=== PATIENT | female | born 1985 | race American Indian/Alaskan Native ===

== ENCOUNTER 2019-03-18 00:13 | Emergency (ER) | payer OTHER, MEDICAID ==
[2019-03-18 00:28] VITALS: BP 116/65
[2019-03-18 00:59] LABS: Basophils # (Auto) 0.1 K/mm3 (0.0-0.1); Basophils % (Auto) 0.6 % (0.0-1.8); Eosinophils # (Auto) 0.2 K/mm3 (0.0-0.4); Hematocrit 36.5 % (30.3-42.9); Hemoglobin 12.4 gm/dl (10.1-14.3); Lymphocytes # (Auto) 2.4 K/mm3 (1.2-5.4); Lymphocytes % (Auto) 24.5 % (13.4-35.0); Mean Corpuscular HGB Conc 34 % (30-34); Mean Corpuscular Volume 83 fl (79-97); Monocytes # (Auto) 0.8 K/mm3 (0.0-0.8); Monocytes % (Auto) 7.8 % (0.0-7.3); Platelet Count 293 K/mm3 (140-440); Red Blood Count 4.38 M/mm3 (3.65-5.03); Red Cell Distribution Width 13.8 % (13.2-15.2)
[2019-03-18 01:18] LABS: Bilirubin,Urine NEG (Negative); Blood,Urine NEG (Negative); Color,Urine Yellow (Yellow); Mucus,Urine 1+ /HPF; Urobilinogen,Urine < 2.0 mg/dL (<2.0)
[2019-03-18 01:21] LABS: Alanine Aminotransferase 8 units/L (7-56); BUN/Creatinine Ratio 13; Blood Urea Nitrogen 8 mg/dL (7-17); Calcium 9.1 mg/dL (8.4-10.2); Hemolysis Index 1
== END 2019-03-18 03:30 | disposition left against medical advice (07) ==
LOC: ED 00:13
DX: O21.8 Other vomiting complicating pregnancy (principal); Z3A.01 Less than 8 weeks gestation of pregnancy; Z53.21 Procedure and treatment not carried out due to patient leaving prior to being seen by health care provider
CPT/HCPCS: 36415; 80053; 81001; 84702; 85025

== ENCOUNTER 2019-03-18 14:01 | Emergency (ER) | payer OTHER, MEDICAID ==
[2019-03-18 14:10] VITALS: BP 132/76
--- NOTE | 2019-03-18 15:01 | Event Note ---
ED Screening Note Date of service: 03/18/19 Time: 14:58 ED Screening Note: This is a 33 y.o. F. that presents to the ER with nausea, vomiting, and diarrhea for 2-3 days. Patient reports being 7 weeks . Followed by [facility]. LMP 01/31/2019 A1 miscarriage This initial assessment/diagnostic orders/clinical plan/treatment(s) is/are subject to change based on patients health status, clinical progression and re- assessment by fellow clinical providers in the ED. Further treatment and workup at subsequent clinical providers discretion. Patient/guardian urged not to elope from the ED as their condition may be serious if not clinically assessed and managed. Initial orders include: Labs
[2019-03-18 15:36] LABS: Bilirubin,Urine NEG (Negative); Blood,Urine NEG (Negative); Color,Urine Yellow (Yellow); Mucus,Urine 1+ /HPF; Protein,Urine <15 mg/dL mg/dL (Negative); Urobilinogen,Urine < 2.0 mg/dL (<2.0)
[2019-03-18 15:42] LABS: HCG Qualitative,Urine Positive (Negative)
[2019-03-18 15:56] LABS: Basophils % (Auto) 0.3 % (0.0-1.8); Eosinophils # (Auto) 0.1 K/mm3 (0.0-0.4); Eosinophils % (Auto) 1.7 % (0.0-4.3); Hematocrit 35.8 % (30.3-42.9); Lymphocytes # (Auto) 2.2 K/mm3 (1.2-5.4); Lymphocytes % (Auto) 24.8 % (13.4-35.0); Mean Corpuscular HGB Conc 34 % (30-34); Mean Corpuscular Volume 84 fl (79-97); Monocytes # (Auto) 0.5 K/mm3 (0.0-0.8); Monocytes % (Auto) 5.3 % (0.0-7.3); Red Blood Count 4.26 M/mm3 (3.65-5.03)
[2019-03-18 16:03] LABS: Alanine Aminotransferase 9 units/L (7-56); BUN/Creatinine Ratio 12; Blood Urea Nitrogen 6 mg/dL (7-17); Calcium 9.3 mg/dL (8.4-10.2); Hemolysis Index 55
[2019-03-18 16:04] LABS: Platelet Count 254 K/mm3 (140-440)
[2019-03-18] MEDS ORDERED: ZOFRAN IV ONE (16:08)
[2019-03-18] MEDS ORDERED: NACL 0.9% 1000 ML 1,000 ML IV ONE (16:08)
--- NOTE | 2019-03-18 16:45 | Emergency Department Report ---
ED N/V/D HPI - General Chief complaint: Nausea/Vomiting/Diarrhea Stated complaint: 7 WKS /VOMIT/DIARRHEA Time Seen by Provider: 03/18/19 14:58 Source: patient Mode of arrival: Ambulatory Limitations: No Limitations - History of Present Illness Initial comments: Janeen is a 33 year old 102 who is 7 weeks . Estimated due date is 11/03/2019. She presents with 3 days of vomiting and diarrhea. She did have fast food recently. 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 She denies abdominal pain. Denies fever. Denies dysuria. 2 healthy children. One miscarriage. With her previous pregnancies, she's had severe morning sickness. MD complaint: nausea, vomiting, diarrhea -: Gradual, days(s) (3) Description of Vomiting: food contents Description of Diarrhea: water Associated Abdominal Pain: No Severity: mild Pain Scale: 0 Improves with: none Worsens with: eating Context: possible food poisoning - Related Data Previous Rx's Medication Instructions Recorded Last Taken Type Ondansetron [Zofran Odt] 4 mg PO Q8HR PRN #10 tab.rapdis 03/18/19 Unknown Rx Promethazine [Phenergan] 25 mg PO Q6HR PRN #10 tab 03/18/19 Unknown Rx Allergies Allergy/AdvReac Type Severity Reaction Status Date / Time No Known Allergies Allergy Unverified 03/18/19 00:28 ED Review of Systems ROS: Stated complaint: 7 WKS /VOMIT/DIARRHEA Other details as noted in HPI Comment: All other systems reviewed and negative Constitutional: denies: fever, malaise Cardiovascular: denies: chest pain ED Past Medical Hx - Past Medical History Previous Medical History?: No - Surgical History Past Surgical History?: No - Social History Smoking Status: Never Smoker - Medications Home Medications: Home Medications Medication Instructions Recorded Confirmed Last Taken Type Ondansetron [Zofran Odt] 4 mg PO Q8HR PRN #10 tab.rapdis 03/18/19 Unknown Rx Promethazine [Phenergan] 25 mg PO Q6HR PRN #10 tab 03/18/19 Unknown Rx ED Physical Exam - General Limitations: No Limitations General appearance: alert, in no apparent distress, other (appears well appears comfortable) - Head Head exam: Present: atraumatic, normocephalic - Eye Eye exam: Present: normal appearance - ENT ENT exam: Present: mucous membranes moist - Neck Neck exam: Present: normal inspection, full ROM - Respiratory Respiratory exam: Present: normal lung sounds bilaterally. Absent: respiratory distress, wheezes, rales, rhonchi - Cardiovascular Cardiovascular Exam: Present: regular rate, normal rhythm, normal heart sounds. Absent: systolic murmur, diastolic murmur, rubs, gallop - GI/Abdominal GI/Abdominal exam: Present: soft, normal bowel sounds. Absent: distended, tenderness, guarding, rebound - Extremities Exam Extremities exam: Present: normal inspection - Back Exam Back exam: Present: normal inspection - Neurological Exam Neurological exam: Present: alert, oriented X3 - Psychiatric Psychiatric exam: Present: normal affect, normal mood - Skin Skin exam: Present: warm, dry, intact, normal color. Absent: rash ED Course Vital Signs 03/18/19 14:04 Temperature 97.9 F Pulse Rate 78 Respiratory 15 Rate Blood Pressure 132/76 [Right] O2 Sat by Pulse 99 Oximetry ED Medical Decision Making - Lab Data Result diagrams: 03/18/19 15:18 03/18/19 15:18 Laboratory Results - last 24 hr 03/18/19 03/18/19 03/18/19 15:08 15:18 15:18 WBC 8.9 RBC 4.26 Hgb 12.0 Hct 35.8 MCV 84 MCH 28 MCHC 34 RDW 14.0 Plt Count 254 Lymph % (Auto) 24.8 [place] % (Auto) 5.3 Eos % (Auto) 1.7 Baso % (Auto) 0.3 Lymph # 2.2 [place] # 0.5 Eos # 0.1 Baso # 0.0 Seg Neutrophils % 67.9 Seg Neutrophils # 6.0 Sodium 135 L Potassium 4.1 Chloride 99.2 Carbon Dioxide 21 L Anion Gap 19 BUN 6 L Creatinine 0.5 L Estimated GFR > 60 BUN/Creatinine Ratio 12 Glucose 95 Calcium 9.3 Total Bilirubin 0.20 ALT 9 Alkaline Phosphatase 52 Total Protein 7.8 Albumin 4.0 Albumin/Globulin Ratio 1.1 Urine Color Yellow Urine Turbidity Cloudy Urine pH 5.0 Ur Specific [place] 1.027 Urine Protein <15 mg/dl Urine Glucose (UA) Neg Urine Ketones Tr Urine Blood Neg Urine Nitrite Neg Urine Bilirubin Neg Urine Urobilinogen < 2.0 Ur Leukocyte Esterase Sm Urine WBC (Auto) 5.0 Urine RBC (Auto) 5.0 U Epithel Cells (Auto) 22.0 H Urine Mucus 1+ Urine HCG, Qual Positive A - Medical Decision Making Janeen presents with mild dehydration reflected by decreased bicarbonate and decreased sodium on BMP. Given IV fluid and IV Zofran. Prescribed promethazine and Zofran. Clinical impression: Dehydration, , food poisoning Critical care attestation.: If time is entered above; I have spent that time in minutes in the direct care of this critically ill patient, excluding procedure time. ED Disposition Clinical Impression: Dehydration during , First trimester , Food poisoning Disposition: DC- TO HOME OR SELFCARE Is pt being admited?: No Does the pt Need Aspirin: No Condition: Stable Instructions: Hyperemesis Gravidarum (ED) Prescriptions: Promethazine [Phenergan] 25 mg PO Q6HR PRN #10 tab PRN Reason: Nausea Ondansetron [Zofran Odt] 4 mg PO Q8HR PRN #10 tab.rapdis PRN Reason: Nausea Referrals: JEFF LINDSAY MD [Staff Physician] - 3-5 Days Forms: Work/School Release Form(ED)
== END 2019-03-18 17:00 | disposition home or self-care (01) ==
LOC: ED 14:01
DX: O9A.211 Injury, poisoning and certain other consequences of external causes complicating pregnancy, first trimester (principal); O99.281 Endocrine, nutritional and metabolic diseases complicating pregnancy, first trimester; A05.9 Bacterial foodborne intoxication, unspecified; E86.0 Dehydration; Z3A.01 Less than 8 weeks gestation of pregnancy
CPT/HCPCS: 36415; 80053; 81001; 81025; 85025; 96361; 96374; 99283; J2405; J7030

== ENCOUNTER 2019-03-31 14:36 | Emergency (ER) | payer OTHER, MEDICAID ==
[2019-03-31 16:24] LABS: Basophils % (Auto) 0.5 % (0.0-1.8); Eosinophils # (Auto) 0.2 K/mm3 (0.0-0.4); Eosinophils % (Auto) 2.1 % (0.0-4.3); Hematocrit 37.8 % (30.3-42.9); Hemoglobin 12.5 gm/dl (10.1-14.3); Lymphocytes # (Auto) 2.2 K/mm3 (1.2-5.4); Lymphocytes % (Auto) 26.1 % (13.4-35.0); Mean Corpuscular HGB Conc 33 % (30-34); Mean Corpuscular Volume 84 fl (79-97); Monocytes # (Auto) 0.6 K/mm3 (0.0-0.8); Monocytes % (Auto) 7.2 % (0.0-7.3); Platelet Count 272 K/mm3 (140-440); Red Blood Count 4.52 M/mm3 (3.65-5.03)
[2019-03-31 16:33] LABS: Alanine Aminotransferase 9 units/L (7-56); BUN/Creatinine Ratio 12; Blood Urea Nitrogen 7 mg/dL (7-17); Calcium 9.4 mg/dL (8.4-10.2); Hemolysis Index 17
[2019-03-31 17:03] LABS: Bilirubin,Urine Negative (Negative); Blood,Urine Negative (Negative); Color,Urine Yellow (Yellow); Urobilinogen,Urine < 2.0 mg/dL (<2.0)
[2019-03-31 18:38] LABS: Mucus,Urine 2+ /HPF
[2019-03-31] MEDS ORDERED: ZOFRAN ODT PO ONE (19:48)
[2019-03-31] MEDS ORDERED: IMODIUM PO ONE (19:48)
--- NOTE | 2019-03-31 19:52 | Emergency Department Report ---
ED N/V/D HPI - General Chief complaint: Nausea/Vomiting/Diarrhea Stated complaint: VOMIT/DIARRHEA/BACK PAIN Time Seen by Provider: 03/31/19 18:29 Source: patient Mode of arrival: Ambulatory Limitations: No Limitations - History of Present Illness Initial comments: 33-year-old female presents to ED with nausea, vomiting, diarrhea 2 days. Patient states she is currently 10 weeks . She reports lower abdominal pain radiating to the back. Patient denies any vaginal bleeding or discharge. She denies fever. OB: [facility] MD complaint: nausea, vomiting, diarrhea, abdominal pain -: days(s) (2) Associated Abdominal Pain: Yes Location: LLQ, RLQ Radiation: other (back) Severity: moderate Quality: cramping Consistency: intermittent Improves with: none Worsens with: eating Associated Symptoms: nausea/vomiting. denies: fever/chills - Related Data Previous Rx's Medication Instructions Recorded Last Taken Type Ondansetron [Zofran Odt] 4 mg PO Q8HR PRN #10 tab.rapdis 03/18/19 Unknown Rx Promethazine [Phenergan] 25 mg PO Q6HR PRN #10 tab 03/18/19 Unknown Rx Metoclopramide HCl [Reglan TAB] 5 mg PO TID PRN #20 tablet 03/31/19 Unknown Rx Allergies Allergy/AdvReac Type Severity Reaction Status Date / Time No Known Allergies Allergy Unverified 03/18/19 00:28 ED Review of Systems ROS: Stated complaint: VOMIT/DIARRHEA/BACK PAIN Other details as noted in HPI Comment: All other systems reviewed and negative Constitutional: denies: chills, fever Gastrointestinal: abdominal pain, nausea, vomiting, diarrhea Genitourinary: denies: dysuria, frequency, discharge, abnormal menses ED Past Medical Hx - Past Medical History Previous Medical History?: No - Surgical History Past Surgical History?: No - Social History Smoking Status: Never Smoker Substance Use Type: None - Medications Home Medications: Home Medications Medication Instructions Recorded Confirmed Last Taken Type Ondansetron [Zofran Odt] 4 mg PO Q8HR PRN #10 tab.rapdis 03/18/19 Unknown Rx Promethazine [Phenergan] 25 mg PO Q6HR PRN #10 tab 03/18/19 Unknown Rx Metoclopramide HCl [Reglan TAB] 5 mg PO TID PRN #20 tablet 03/31/19 Unknown Rx ED Physical Exam - General Limitations: No Limitations General appearance: alert, in no apparent distress - Head Head exam: Present: atraumatic, normocephalic - Eye Eye exam: Present: normal appearance - ENT ENT exam: Present: mucous membranes moist - Neck Neck exam: Present: normal inspection - Respiratory Respiratory exam: Present: normal lung sounds bilaterally. Absent: respiratory distress - Cardiovascular Cardiovascular Exam: Present: regular rate, normal rhythm - GI/Abdominal GI/Abdominal exam: Present: soft, tenderness (mild diffuse). Absent: distended - Extremities Exam Extremities exam: Present: normal inspection - Neurological Exam Neurological exam: Present: alert, oriented X3 - Psychiatric Psychiatric exam: Present: normal affect, normal mood - Skin Skin exam: Present: warm, dry, intact, normal color ED Course Vital Signs 03/31/19 03/31/19 15:12 21:07 Temperature 98.3 F Pulse Rate 82 87 Respiratory 18 17 Rate Blood Pressure 107/64 Blood Pressure 110/61 [Left] O2 Sat by Pulse 100 Oximetry ED Medical Decision Making - Lab Data Result diagrams: 03/31/19 15:36 03/31/19 15:36 - Medical Decision Making Labs unremarkable. US normal. Pt tolerating PO. Outpt f/u advised. Return precautions given. - Differential Diagnosis gastroenteritis, miscarriage, UTI Critical care attestation.: If time is entered above; I have spent that time in minutes in the direct care of this critically ill patient, excluding procedure time. ED Disposition Clinical Impression: Gastroenteritis, 9 weeks gestation of Disposition: DC-01 TO HOME OR SELFCARE Is pt being admited?: No Condition: Stable Instructions: Gastroenteritis (ED) Prescriptions: Metoclopramide HCl [Reglan TAB] 5 mg PO TID PRN #20 tablet PRN Reason: Nausea And Vomiting Referrals: PRIMARY CARE, [Primary Care Provider] - 3-5 Days Time of Disposition: 20:58
--- NOTE | 2019-03-31 20:51 | Ultrasound Report ---
Transabdominal OB pelvic ultrasound INDICATION / CLINICAL INFORMATION: Abdominal/pelvic pain and hyperemesis for 2 days. COMPARISON: None available. FINDINGS: There is an intrauterine gestational sac. A yolk sac is present. There is a pole measuring 9 we eks 5 days by crown-rump length. cardiac activity is seen with a heart rate of 169 bpm. There i s no evidence of implantation hemorrhage. The right ovary measures 1.9 x 1.8 x 1.9 cm and the left ovary 3.4 x 2.4 x 3.0 cm. There is a 1.7 cm corpus luteal cyst in the left ovary. Normal blood flow seen to both ovaries on Doppler exam. No free fluid is identified. There are 3 uterine fibroids present. There is a 3.7 cm fibroid in the uterine fundus, a 2.3 cm fibro id in the anterior uterine body and a 1.8 cm fibroid in the right uterine body posteriorly. Images of the urinary bladder are normal. IMPRESSION: 1. Single viable 9 week 5 day intrauterine . 2. 1.7 cm corpus luteal cyst in the left ovary. 3. Multiple uterine fibroids, the largest of which measures approximately 3.7 cm. Signer Name: Xavi Farrell MD Signed: 03/31/2019 8:47 PM Workstation Name: [id number]
[2019-03-31 21:08] VITALS: BP 110/61
== END 2019-03-31 21:07 | disposition home or self-care (01) ==
LOC: ED 14:36
DX: O99.611 Diseases of the digestive system complicating pregnancy, first trimester (principal); K52.9 Noninfective gastroenteritis and colitis, unspecified; O21.9 Vomiting of pregnancy, unspecified; Z79.899 Other long term (current) drug therapy; Z3A.09 9 weeks gestation of pregnancy
CPT/HCPCS: 36415; 76801; 80053; 81001; 84702; 85025; 99284; Q0162

== ENCOUNTER 2019-06-29 22:13 | Outpatient (CLI) | payer OTHER, MEDICAID ==
[2019-06-29 23:42] LABS: Bilirubin,Urine NEG (Negative); Blood,Urine NEG (Negative); Color,Urine Yellow (Yellow); Mucus,Urine FEW /HPF; Protein,Urine <15 mg/dL mg/dL (Negative); Urobilinogen,Urine < 2.0 mg/dL (<2.0)
[2019-06-30] MEDS ORDERED: LACTATED RINGERS 1,000 ML IV ONE (00:32)
[2019-06-30] MEDS: TERBUTALINE 1 MG/1 ML INJ SUB-Q SCH ×2 (01:45→02:12)
[2019-06-30 01:57] VITALS: BP 110/61
== END 2019-06-30 04:07 | disposition home or self-care (01) ==
LOC: TRG 22:13
PROVIDERS: ATTEND Obstetrics & Gynecology
DX: O62.9 Abnormality of forces of labor, unspecified (principal); O21.2 Late vomiting of pregnancy; O09.523 Supervision of elderly multigravida, third trimester; O26.892 Other specified pregnancy related conditions, second trimester; R25.2 Cramp and spasm; Z3A.22 22 weeks gestation of pregnancy
CPT/HCPCS: 81001; 87086; 96360; 96372; J3105; J7120

== ENCOUNTER 2019-08-30 18:40 | Outpatient (CLI) | payer OTHER, MEDICAID ==
[2019-08-30 19:14] VITALS: BP 109/69
[2019-08-30] MEDS ORDERED: LACTATED RINGERS 1,000 ML IV ONE (19:37)
[2019-08-30 19:59] LABS: Bacteria,Urine 2+ /HPF (Negative); Bilirubin,Urine NEG (Negative); Blood,Urine NEG (Negative); Color,Urine Yellow (Yellow); Mucus,Urine 1+ /HPF; Protein,Urine <15 mg/dL mg/dL (Negative); Urobilinogen,Urine < 2.0 mg/dL (<2.0)
--- NOTE | 2019-08-30 22:19 | Ultrasound Report ---
ULTRASOUND OBSTETRIC INDICATION / CLINICAL INFORMATION: decreased movement. Clinical Gestational Age (GA): 30 weeks 6 days TECHNIQUE: Transabdominal. COMPARISON: Obstetric ultrasound 03/31/2019 FINDINGS: There is a single intrauterine in cephalic presentation. Heart Rate: 159 beats per minute. Normal amniotic fluid volume with SAMPSON 14.9 cm. BREATHING MOVEMENT = 2 GROSS BODY MOVEMENT = 2 TONE = 2 QUALITATIVE AMNIOTIC FLUID VOLUME = 2 TOTAL BIOPHYSICAL SCORE = 8/8 IMPRESSION: 1. heart rate 159 bpm. 2. Normal biophysical profile and amniotic fluid index. Signer Name: González Mohamud MD Signed: 08/30/2019 10:14 PM Workstation Name: [id number]
== END 2019-08-30 21:30 | disposition home or self-care (01) ==
LOC: TRG 18:40
PROVIDERS: ATTEND Obstetrics & Gynecology
DX: O36.8130 Decreased fetal movements, third trimester, not applicable or unspecified (principal); O62.9 Abnormality of forces of labor, unspecified; O09.523 Supervision of elderly multigravida, third trimester; Z3A.30 30 weeks gestation of pregnancy
CPT/HCPCS: 76815; 76819; 81001; 96360; J7120

== ENCOUNTER 2019-10-13 20:54 | Inpatient (IN) | payer MEDICAID ==
[2019-10-13 23:16] LABS: Bacteria,Urine 2+ /HPF (Negative); Bilirubin,Urine NEG (Negative); Blood,Urine NEG (Negative); Color,Urine Straw (Yellow); Mucus,Urine FEW /HPF; Protein,Urine <15 mg/dL mg/dL (Negative); Urobilinogen,Urine < 2.0 mg/dL (<2.0)
[2019-10-13 23:18] LABS: Amphetamine Screen,Urine PRESUMPTIVE NEGATIVE; Benzodiazepines Screen,Urine PRESUMPTIVE NEGATIVE; Cannabinoid Screen,Urine PRESUMPTIVE NEGATIVE; Cocaine Screen,Urine PRESUMPTIVE NEGATIVE; Methadone Screen,Urine PRESUMPTIVE NEGATIVE; Opiate Screen,Urine PRESUMPTIVE NEGATIVE
[2019-10-14] MEDS ORDERED: ACETAMINOPHEN 500 MG TAB ONE (00:09)
[2019-10-14] MEDS ORDERED: ACETAMINOPHEN 325 MG TAB PO STA (00:55)
[2019-10-14 01:08] LABS: Basophils % (Auto) 0.3 % (0.0-1.8); Eosinophils # (Auto) 0.1 K/mm3 (0.0-0.4); Eosinophils % (Auto) 1.4 % (0.0-4.3); Hematocrit 32.2 % (30.3-42.9); Hemoglobin 10.6 gm/dl (10.1-14.3); Lymphocytes # (Auto) 2.2 K/mm3 (1.2-5.4); Lymphocytes % (Auto) 36.9 % (13.4-35.0); Mean Corpuscular HGB Conc 33 % (30-34); Mean Corpuscular Volume 82 fl (79-97); Monocytes # (Auto) 0.7 K/mm3 (0.0-0.8); Monocytes % (Auto) 10.8 % (0.0-7.3); Platelet Count 203 K/mm3 (140-440); Red Blood Count 3.91 M/mm3 (3.65-5.03); Red Cell Distribution Width 16.3 % (13.2-15.2)
[2019-10-14 01:20] LABS: Alanine Aminotransferase 15 units/L (7-56); Albumin 3.2 g/dL (3.9-5); BUN/Creatinine Ratio 14; Blood Urea Nitrogen 7 mg/dL (7-17); Calcium 9.2 mg/dL (8.4-10.2); Hemolysis Index 30
--- NOTE | 2019-10-14 04:11 | Ultrasound Report ---
Limited OB Ultrasound Biophysical profile HISTORY: BPP. TECHNIQUE: Grayscale and color imaging performed. COMPARISON: Ultrasound exams from 09/27/2019 FINDINGS: Single viable intrauterine gestation with cephalic presentation, SAMPSON of 12 cm, and heart ra te of 145 bpm. On biophysical profile, the fetus received a score of 2 out of 2 for breathing, movement, posture/ton e, and SAMPSON. Total score was 8 out of 8. IMPRESSION: 1. Single viable intrauterine gestation as above. 2. Normal BPP. Signer Name: Álvaro Colin MD Signed: 10/14/2019 4:06 AM Workstation Name: [email or web address]
[2019-10-14 04:25] LABS: Uric Acid 4.3 mg/dL (3.5-7.6)
[2019-10-14] MEDS ORDERED: fentaNYL 100 MCG/2 ML INJ IV PRN (04:28)
[2019-10-14] MEDS ORDERED: ePHEDrine SULFATE 50 MG/1 ML INJ IV PRN ×2 (04:28→07:02)
[2019-10-14] MEDS ORDERED: TERBUTALINE 1 MG/1 ML INJ SUB-Q PRN (04:28)
[2019-10-14] MEDS ORDERED: LIDOCAINE (2%) 20 MG/1 ML VIAL 20 ML MDV INFILTRATI ONE (04:28)
[2019-10-14] MEDS ORDERED: AMPICILLIN/NS 2 GM/100 ML 2 GM/100 ML BAG IV ONE (04:28)
[2019-10-14] MEDS ORDERED: LACTATED RINGERS 1,000 ML ONE (04:35)
--- NOTE | 2019-10-14 04:39 | History and Physical Report ---
History of Present Illness Date of examination: 10/14/19 Date of admission: 10/14/2019 Chief complaint: Contractions, leaking of water History of present illness: 34 year old presents with complaint of contractions and leaking of clear fluid from vagina. Patient received care from [facility] but limited records are available. LMP 01/26/2019. EDC 11/02/2019. significant for the following: AMA, uterine fibroids, anemia, rubella nonimmune, vitamin D deficiency. labs are as follows: A+, antibody screen negative, rubella nonimmune, HIV negative, hepatitis B surface antigen negative, RPR nonreactive, gonorrhea negative, chlamydia negative, GBS unknown, 1 hour sugar test 112. Past History Past Medical History: no pertinent history Past Surgical History: no surgical history [facility] History: denies: chlamydia, gonorrhea, hepatitis B, hepatitis C, herpes, HIV, syphilis Family/Genetic History: none Social history: single, full code. denies: smoking, alcohol abuse, IV drug use - Obstetrical History Expected Date of Delivery: 11/02/19 Actual Gestation: 37 Week(s) 2 Day(s) : 4 Para: 2 Hx # Term Pregnancies: 2 Number of Pregnancies: 0 Spontaneous Abortions: 1 Induced : 0 Number of Living Children: 2 Medications and Allergies Allergies Allergy/AdvReac Type Severity Reaction Status Date / Time No Known Allergies Allergy Verified 08/30/19 19:37 Home Medications Medication Instructions Recorded Confirmed Last Taken Type Ondansetron [Zofran Odt] 4 mg PO Q8HR PRN #10 tab.rapdis 03/18/19 09/27/19 Unknown Rx Promethazine [Phenergan] 25 mg PO Q6HR PRN #10 tab 03/18/19 09/27/19 Unknown Rx Metoclopramide HCl [Reglan TAB] 5 mg PO TID PRN #20 tablet 03/31/19 09/27/19 Unknown Rx Vitamin 1 tab PO DAILY 09/27/19 09/27/19 09/26/19 09:00 History 1 Active Meds: Active Medications Ephedrine Sulfate (Ephedrine Sulfate) 10 mg IV Q2M PRN PRN Reason: Hypotension Fentanyl (Sublimaze) 100 mcg IV Q2H PRN PRN Reason: Pain,Severe (7-10) LABOR PAIN Oxytocin/Sodium Chloride (Pitocin/Ns 20 Unit/1000ml Drip) 20 units in 1,000 mls @ 125 mls/hr IV DIRECT GERRY Oxytocin/Sodium Chloride (Pitocin/Ns 30 Unit/500ml) 30 units in 500 mls @ 0 mls/hr IV TITR GERRY; Protocol Lactated Ringer's (Lactated Ringers) 1,000 mls @ 125 mls/hr IV DIRECT GERRY Ampicillin Sodium (Ampicillin/Ns 2 Gm/100 Ml) 2 gm in 100 mls @ 100 mls/hr IV ONCE ONE; Protocol Stop: 10/14/19 05:27 Ampicillin Sodium (Ampicillin/Ns 1 Gm/50 Ml) 1 gm in 50 mls @ 100 mls/hr IV Q4HR GERRY; Protocol Terbutaline Sulfate (Brethine) 0.25 mg SUB-Q ONCE PRN PRN Reason: Hyperstimulation/Hypertonicity Review of Systems All systems: negative (contractions and leaking of clear fluid from vagina) - Vital Signs Vital signs: Vital Signs Pulse BP 75 132/81 10/13/19 21:36 10/13/19 21:36 Temp Pulse Resp BP Pulse Ox 88 141/82 10/14/19 04:14 10/14/19 04:14 - Physical Exam Abdomen: Positive: normal appearance, soft. Negative: distention, tenderness, guarding, rigidity Genitourinary (Female): Positive: normal external genitalia, normal perenium. Negative: perineal/vulvar lesions (no lesions seen on careful exam with bright light upon admission) Vagina: Positive: normal moisture Uterus: Positive: enlarged. Negative: tender Anus/Rectum: Positive: normal perianal skin Extremities: Positive: normal. Negative: tenderness, edema - Obstetrical FHR: category 1 Uterine Contraction Monitor Mode: External Cervical Dilatation: 2.5 Cervical Effacement Percentage: 70 station: -2 Uterine Contraction Pattern: Irregular Uterine Contraction Intensity: Mild Results Result Diagrams: 10/14/19 04:53 10/14/19 00:15 Abnormal lab results 10/14/19 10/14/19 Range/Units 00:15 00:15 MCH 27 L (28-32) pg RDW 16.3 H (13.2-15.2) % Lymph % (Auto) 36.9 H (13.4-35.0) % [place] % (Auto) 10.8 H (0.0-7.3) % Sodium 134 L (137-145) mmol/L Carbon Dioxide 21 L (22-30) mmol/L Creatinine 0.5 L (0.7-1.2) mg/dL Alkaline Phosphatase 134 H (35-129) units/L Lactate Dehydrogenase 212 H (91-180) units/L Total Protein 6.2 L (6.3-8.2) g/dL Albumin 3.2 L (3.9-5) g/dL All other labs normal. Assessment and Plan A: at 37 weeks, 2 days gestation. SROM. Early labor. GBS unknown. P: Admit. EFM. GBS prophylaxis. Pitocin augmentation of labor. Discussed with pt. risks and benefits of Pitocin augmentation of labor. Patient consented to Pitocin augmentation of labor.
[2019-10-14] MEDS: LACTATED RINGERS 1,000 ML IV SCH ×2 (04:51→05:52)
[2019-10-14] MEDS ORDERED: OXYTOCIN DRIP 30 UNITS/500 ML BAG IV SCH (05:00)
[2019-10-14] MEDS ORDERED: OXYTOCIN 20 UNIT/1000ML DRIP 20 UNITS/1,000 ML BAG IV SCH (05:00)
[2019-10-14 05:09] LABS: Hematocrit 31.8 % (30.3-42.9); Hemoglobin 10.6 gm/dl (10.1-14.3); Mean Corpuscular HGB Conc 33 % (30-34); Mean Corpuscular Volume 82 fl (79-97); Platelet Count 210 K/mm3 (140-440); Red Blood Count 3.88 M/mm3 (3.65-5.03); Red Cell Distribution Width 15.7 % (13.2-15.2)
[2019-10-14] MEDS ORDERED: fentaNYL-BUPIV 2 MCG/ML-0.125% 200 MCG/100 ML BAG EPIDURAL ONE (06:38)
[2019-10-14] MEDS ORDERED: DEXMEDETOMIDINE 200 MCG/2 ML VIAL IV ONE (06:40)
[2019-10-14] MEDS ORDERED: NALOXONE 2 MG/2 ML INJ IV PRN (07:02)
--- NOTE | 2019-10-14 07:04 | Anesthesia Consultation ---
Anesthesia Consult and Med Hx Date of service: 10/14/19 - Airway Anesthetic Teeth Evaluation: Good ROM Head & Neck: Adequate Mental/Hyoid Distance: Adequate Mallampati Class: Class II Intubation Access Assessment: Probably Good - Pulmonary Exam CTA: Yes - Cardiac Exam Cardiac Exam: RRR - Pre-Operative Health Status ASA Pre-Surgery Classification: ASA2 Proposed Anesthetic Plan: Epidural - Pulmonary Hx Asthma: No COPD: No Hx Pneumonia: No - Cardiovascular System Hx Hypertension: No - Central Nervous System Hx Seizures: No Hx Psychiatric Problems: No - Endocrine Hx Renal Disease: No Hx End Stage Renal Disease: No Hx Hypothyroidism: No Hx Hyperthyroidism: No - Hematic Hx Anemia: Yes Hx Sickle Cell Disease: No - Other Systems Hx Alcohol Use: No
[2019-10-14] MEDS ORDERED: fentaNYL-BUPIV 2 MCG/ML-0.125% 200 MCG/100 ML BAG EPIDURAL SCH (08:00)
[2019-10-14] MEDS ORDERED: AMPICILLIN/NS 1 GM/50 ML 1 GM/50 ML BAG IV SCH (08:34)
--- NOTE | 2019-10-14 08:47 | Procedure Note ---
OB Delivery Note - Delivery Date of Delivery: 10/14/19 Surgeon: FRIEDA ROCHA Estimated blood loss: 200cc - Vaginal Delivery presentation: vertex Delivery position: OA Intrapartum events: none Delivery induction: none Delivery augmentation: pitocin Delivery monitor: external FHT, external uterine Route of delivery: Delivery placenta: spontaneous Delivery cord: nuchal cord, 3 umbilical vessels Episiotomy: none Delivery laceration: none Anesthesia: epidural Delivery comments: Spontaneous vaginal delivery at 08:20 of liveborn male infant weighing 2682 grams over intact perineum with apgars of 8/9. Nuchal cord times 1, manually reduced. Baby placed skin to skin with mom immediately after delivery. Spontaneous cry and respirations. Baby bulb suctioned and dried with warm towels. 3 vessel cord double clamped and cut. Spontaneous delivery of intact placenta and membranes by nunez mechanism. EBL 200 cc. Pitocin to IV fluids after delivery of placenta. Fundus firm and midline. Vaginal sweep negative. No lacerations noted. Mother and baby stable.
[2019-10-14] MEDS ORDERED: LANOLIN/ZINC/DIMETHICONE (LANSINOH) 7 GM TP PRN (09:00)
[2019-10-14] MEDS ORDERED: WITCH HAZEL/ GLYCERIN PAD TP PRN (09:00)
[2019-10-14] MEDS ORDERED: HYDROcodone/ACETAMINOPHEN 5-325 MG TAB PO PRN (10:00)
[2019-10-14] MEDS: IBUPROFEN 600 MG TAB PO SCH (14:20)
--- NOTE | 2019-10-14 20:53 | Post Anesthesia Evaluation ---
- Post Anesthesia Evaluation Patient Participated: Yes Airway Patent: Yes Stable Respiratory Function: Yes Nausea/Vomiting: No Temp > 96.8F: Yes Pain Manageable: Yes Adequeate Hydration: Yes Anesthesia Complications: No Block Receding Appropriately: Yes
[2019-10-14 21:08] LABS: Hematocrit 28.2 % (30.3-42.9); Hemoglobin 9.3 gm/dl (10.1-14.3)
[2019-10-15] MEDS: IBUPROFEN 600 MG TAB PO SCH ×5 (00:12→23:41)
--- NOTE | 2019-10-15 13:34 | Progress Note ---
Assessment and Plan A: day 1 S/P . Anemia. P: Anticipate discharge home tomorrow as baby has not been discharged today. Subjective - Subjective Date of service: 10/15/19 Interval history: day 1 S/P . Doing well. Patient reports: appetite normal, voiding normally, pain well controlled, flatus, ambulating normally, no dizzy ambulation, no nauseated [place]: doing well Objective - Vital Signs Latest vital signs: Vital Signs Temp Pulse Resp BP Pulse Ox 10/15/19 09:15 98.7 F 92 H 18 103/80 10/15/19 05:36 20 10/15/19 04:00 98.7 F 63 16 108/72 10/15/19 00:12 20 10/15/19 00:00 98.6 F 63 18 101/74 10/14/19 19:30 98.6 F 74 18 112/78 10/14/19 18:05 97.7 F 87 16 122/69 99 Intake and Output 10/14/19 10/15/19 10/15/19 23:59 07:59 15:59 Intake Total 540 400 320 Output Total 400 Balance 140 400 320 Intake: Oral 240 400 320 Intake, Free Water 300 Output: Urine 400 Indwelling Catheter 400 Other: Total, Intake Amount 240 200 320 Total, Output Amount 400 # Voids Indwelling Catheter 1 Void 1 1 1 - Exam Cardiovascular: Present: Regular rate, Normal S1, Normal S2 Lungs: Present: Clear to auscultation Abdomen: Present: normal appearance, soft. Absent: distention, tenderness, guarding, rigidity Uterus: Present: normal, firm, fundal height at umbilicus. Absent: bogginess, tenderness Extremities: Present: normal. Absent: tenderness, edema - Labs Labs: Abnormal lab results 10/14/19 Range/Units 20:48 Hgb 9.3 L (10.1-14.3) gm/dl Hct 28.2 L (30.3-42.9) %
[2019-10-15] MEDS: FERROUS SULFATE 325 MG TAB PO SCH (23:42)
[2019-10-16] MEDS: IBUPROFEN 600 MG TAB PO SCH ×2 (05:40→11:24)
[2019-10-16] MEDS: FERROUS SULFATE 325 MG TAB PO SCH (09:33)
--- NOTE | 2019-10-16 11:22 | Progress Note ---
Assessment and Plan - Patient Problems (1) Status post normal vaginal delivery Current Visit: Yes Status: Acute Plan to address problem: PPD 2 - stable Continue routine orders Discharge to home today Follow-up at [facility] as needed or in 6 weeks for exam (2) Single live Current Visit: Yes Status: Acute (3) Anemia due to blood loss, acute Current Visit: Yes Status: Acute Plan to address problem: Asymptomatic Continue iron therapy Eat iron-rich foods Subjective - Subjective Date of service: 10/16/19 Principal diagnosis: PPD #2; s/p Interval history: see [facility] - H&P, OB Delivery Procedure Note and PP/PRICING LEAD Progress Note Patient reports: appetite normal, voiding normally, pain well controlled, amb ulating normally, no dizzy ambulation [place]: doing well Objective - Vital Signs Latest vital signs: Vital Signs Temp Pulse Resp BP Pulse Ox 10/16/19 08:10 98.5 F 88 18 115/57 10/16/19 00:19 98.5 F 95 H 18 139/88 96 10/15/19 16:25 97.9 F 91 H 18 125/65 Intake and Output 10/15/19 10/16/19 10/16/19 23:59 07:59 15:59 Intake Total 520 120 Balance 520 120 Intake: Oral 520 120 Other: Total, Intake Amount 200 120 # Voids Indwelling Catheter 0 Void 1 1 1 - Exam Cardiovascular: Present: Regular rate Lungs: Present: Clear to auscultation Abdomen: Present: normal appearance, soft Vulva: both: normal Uterus: Present: normal, firm, fundal height below umbilicus Extremities: Present: normal Comments: scant lochia
--- NOTE | 2019-10-16 11:23 | Discharge Summary ---
Providers - Providers Date of Admission: 10/14/19 04:28 Date of discharge: 10/16/19 Attending physician: GILES MORATAYA MD Primary care physician: GILES MORATAYA MD Hospitalization Reason for admission: active labor, IUP at term Delivery: Episiotomy: none Laceration: none Other procedures: none complications: none Discharge diagnosis: IUP at term delivered baby: male Hospital course: Uncomplicated Condition at discharge: Stable Disposition: CT-01 TO HOME OR SELFCARE - Discharge Diagnoses (1) Status post normal vaginal delivery Status: Acute (2) Single live Status: Acute (3) Anemia due to blood loss, acute Status: Acute Comment: Asymptomatic Continue iron therapy Eat iron-rich foods Plan - Discharge Medications Prescriptions: Ferrous Sulfate [Feosol 325 MG tab] 325 mg PO BID #60 tablet - Provider Discharge Summary Activity: routine, no sex for 6 weeks, no heavy lifting 4 weeks, no strenuous exercise Diet: routine Instructions: routine Additional instructions: [] Smoking cessation referral if applicable(refer to patient education folder for contact #) [] Refer to [facility]'s [facility] Booklet Call your doctor immediately for: * Fever > 100.5 * Heavy vaginal bleeding ( >1 pad per hour) * Severe persistent headache * Shortness of breath * Reddened, hot, painful area to leg or breast * Drainage or odor from incision. * Keep incision clean and dry at all times and follow doctor's instructions regarding bathing/showering - Follow up plan Follow up: GILES MORATAYA MD [Primary Care Provider] - 6 Weeks (Follow-up at [facility] as needed or in 6 weeks for exam) Forms: [facility] Discharge Summary
[2019-10-17 11:27] VITALS: BP 120/75
== END 2019-10-16 13:20 | disposition home or self-care (01) | DRG 775 ==
LOC: TRG 20:54 → APU 20:59 → TRG 10-14 04:28 → LD 10-14 04:28 → OB 10-14 11:10
PROVIDERS: ADMIT Obstetrics & Gynecology; ATTEND Obstetrics & Gynecology
PROC: 10E0XZZ Delivery of Products of Conception, External Approach (ICD-10-PCS; principal; 2019-10-14)
PROC: 3E0S3BZ Introduction of Anesthetic Agent into Epidural Space, Percutaneous Approach (ICD-10-PCS; 2019-10-14)
PROC: 00HU33Z Insertion of Infusion Device into Spinal Canal, Percutaneous Approach (ICD-10-PCS; 2019-10-14)
DX: O69.81X0 Labor and delivery complicated by cord around neck, without compression, not applicable or unspecified (principal); O90.81 Anemia of the puerperium; D62 Acute posthemorrhagic anemia; Z3A.37 37 weeks gestation of pregnancy; Z37.0 Single live birth
CPT/HCPCS: 36415; 76815; 76819; 80053; 80307; 81001; 83615; 84550; 85014; 85018; 85025; 85027; 86850; 86900; 86901; G0378; J0290; J2590; J3010; J3490; J7120

== ENCOUNTER 2020-04-16 08:12 | Emergency (ER) | payer MEDICAID, OTHER ==
[2020-04-16 08:35] VITALS: BP 122/88
== END 2020-04-16 11:16 | disposition left against medical advice (07) ==
LOC: ED 08:12
DX: H57.9 Unspecified disorder of eye and adnexa (principal); Z53.21 Procedure and treatment not carried out due to patient leaving prior to being seen by health care provider